=== PATIENT | female | born 1935 | race Caucasian/White ===

== ENCOUNTER → 2016-11-07 | Outpatient (REF) | payer MEDICARE ==
[~2016-11-07] MED LIST: /WARF25TA OR; /WARF5TA OR; ACET65TA OR; CALCCHW12 OR; LISI10TA4 PO; NAPRPOW4 PO; NORC1TAB4 PO; PERC5TAB8 OR; PERC7.5T8 OR; VITA20008 PO; VITAMIN D PO
== END ==
LOC: M LAB REF 16:08
DX: M62.89 Other specified disorders of muscle (principal); E53.8 Deficiency of other specified B group vitamins; E11.9 Type 2 diabetes mellitus without complications; E78.2 Mixed hyperlipidemia

== ENCOUNTER → 2016-11-07 | Outpatient (REF) | payer MEDICARE ==
[2016-11-07 13:01] LABS: ALBUMIN 3.9 GM/DL (3.2-5.2); ALBUMIN/GLOBULIN RATIO 1.39 (1.00-1.93); BILIRUBIN,TOTAL 0.6 MG/DL (0.2-1.0); CALCIUM LEVEL 8.9 MG/DL (8.8-10.2); CREATININE FOR GFR 1.14 MG/DL (0.55-1.02); GLOMERULAR FILTRATION RATE 48.9 (>39); POTASSIUM SERUM 4.5 MEQ/L (3.5-5.1); TOTAL PROTEIN 6.7 GM/DL (6.4-8.2)
== END ==
LOC: M SFHCPLAZ 08:01
PROVIDERS: ATTEND Family Medicine
DX: E78.2 Mixed hyperlipidemia (principal)

== ENCOUNTER → 2017-10-05 | Outpatient (REF) | payer MEDICARE ==
[2017-10-05 17:54] LABS: APPEARANCE, URINE HAZY (CLEAR); BACTERIA, URINE AUTO NEGATIVE (NEGATIVE); BILIRUBIN, URINE AUTO NEGATIVE (NEGATIVE); BLOOD, URINE BLOOD NEGATIVE (NEGATIVE); COLOR, URINE YELLOW (YELLOW); GLUCOSE, URINE (UA) AUTO NEGATIVE (NEGATIVE); KETONE, URINE AUTO TRACE mg/dL (NEGATIVE); LEUKOCYTE ESTERASE, URINE AUTO 2+ (NEGATIVE); MUCUS, URINE SMALL (NEGATIVE); NITRITE, URINE AUTO NEGATIVE (NEGATIVE); PROTEIN, URINE AUTO NEGATIVE (NEGATIVE); RBC, URINE AUTO 3 /HPF (0-3); SPECIFIC GRAVITY URINE AUTO 1.026 (1.002-1.035); SQUAMOUS EPITHELIAL CELL UR AU 1 /HPF (0-6); WBC, URINE AUTO 68 /HPF (0-3); YEAST LIKE CELL URINE AUTO SMALL
== END ==
LOC: M LAB REF 17:28
DX: N39.0 Urinary tract infection, site not specified (principal)
CPT/HCPCS: 81001

== ENCOUNTER → 2017-11-28 | Outpatient (REF) | payer MEDICARE ==
[2017-11-28 11:52] LABS: HEMATOCRIT 33.7 % (36.0-47.0); MEAN CORPUSCULAR HEMOGLOBIN 28.6 pg (27.0-33.0); MEAN CORPUSCULAR HGB CONC 32.6 g/dl (32.0-36.5); MEAN CORPUSCULAR VOLUME 87.8 fl (80.0-96.0); PLATELET COUNT, AUTOMATED 355 10^3/uL (150-450); RED BLOOD COUNT 3.84 10^6/uL (4.00-5.40); RED CELL DISTRIBUTION WIDTH 15.2 % (11.5-14.5)
[2017-11-28 12:05] LABS: ALBUMIN 3.7 GM/DL (3.2-5.2); ALBUMIN/GLOBULIN RATIO 1.23 (1.00-1.93); ALKALINE PHOSPHATASE 78 U/L (45-117); ALT/SGPT 20 U/L (12-78); ANION GAP 6 MEQ/L (8-16); AST/SGOT 17 U/L (7-37); BILIRUBIN,TOTAL 0.7 MG/DL (0.2-1.0); BLOOD UREA NITROGEN 22 MG/DL (7-18); CALCIUM LEVEL 8.6 MG/DL (8.8-10.2); CARBON DIOXIDE LEVEL 27 MEQ/L (21-32); CHLORIDE LEVEL 107 MEQ/L (98-107); GLOMERULAR FILTRATION RATE 50.9 (>32); GLUCOSE, FASTING 110 MG/DL (70-100); POTASSIUM SERUM 4.7 MEQ/L (3.5-5.1); SODIUM LEVEL 140 MEQ/L (136-145); TOTAL PROTEIN 6.7 GM/DL (6.4-8.2)
[2017-11-28 12:15] LABS: TOTAL 25(OH) VITAMIN D 24.1 NG/ML (30.0-100.0)
== END ==
LOC: M SFHCPLAZ 09:07
DX: D64.9 Anemia, unspecified (principal); E55.9 Vitamin D deficiency, unspecified; E78.2 Mixed hyperlipidemia
CPT/HCPCS: 80053

== ENCOUNTER → 2018-07-04 | Outpatient (CLI) | payer MEDICARE | LOC: M RAD 12:40 | DX: S22.42XA Multiple fractures of ribs, left side, initial encounter for closed fracture (principal); R91.8 Other nonspecific abnormal finding of lung field; R07.89 Other chest pain; M25.512 Pain in left shoulder; X58.XXXA Exposure to other specified factors, initial encounter; Y92.9 Unspecified place or not applicable | CPT/HCPCS: 71101 ==

== ENCOUNTER 2018-07-06 09:59 | Emergency (ER) | payer MEDICARE ==
[2018-07-06 11:20] LABS: BASO % 0.4 % (0.0-1.0); EOS # 0.5 10^3/uL (0.0-0.50); EOS % 5.1 % (0.0-3.0); IMMATURE GRANULOCYTE % 0.5 % (0-3.0); LYMPH # 0.9 10^3/uL (1.5-4.5); LYMPH % 9.7 % (24.0-44.0); MEAN CORPUSCULAR HEMOGLOBIN 25.9 pg (27.0-33.0); MEAN CORPUSCULAR HGB CONC 32.1 g/dl (32.0-36.5); MEAN CORPUSCULAR VOLUME 80.7 fl (80.0-96.0); MONO # 0.8 10^3/uL (0.0-0.8); MONO % 7.9 % (0.0-5.0); NEUTROPHILS # 7.3 10^3/uL (1.8-7.7); NEUTROPHILS % 76.4 % (36.0-66.0); PLATELET COUNT, AUTOMATED 323 10^3/uL (150-450); RED BLOOD COUNT 3.47 10^6/uL (4.00-5.40); RED CELL DISTRIBUTION WIDTH 17.3 % (11.5-14.5); WHITE BLOOD COUNT 9.6 10^3/uL (4.0-10.0)
[2018-07-06] MEDS: NS 1,000 ML IV (11:28)
[2018-07-06 11:31] LABS: PROTHROMBIN TIME 13.3 SECONDS (12.1-14.4)
[2018-07-06 11:47] LABS: LACTIC ACID SEPSIS PROTOCOL 1.3 MMOL/L (0.4-2.0)
[2018-07-06 11:50] LABS: INFLUENZA A AMPLIFICATION NEGATIVE (NEGATIVE); INFLUENZA B AMPLIFICATION NEGATIVE (NEGATIVE)
[2018-07-06 12:11] LABS: ALBUMIN 3.4 GM/DL (3.2-5.2); ALKALINE PHOSPHATASE 75 U/L (45-117); ALT/SGPT 17 U/L (12-78); ANION GAP 7 MEQ/L (8-16); AST/SGOT 16 U/L (7-37); BILIRUBIN,DIRECT 0.1 MG/DL (0.0-0.2); BILIRUBIN,TOTAL 0.6 MG/DL (0.2-1.0); BLOOD UREA NITROGEN 27 MG/DL (7-18); CALCIUM LEVEL 8.6 MG/DL (8.8-10.2); CARBON DIOXIDE LEVEL 26 MEQ/L (21-32); CHLORIDE LEVEL 105 MEQ/L (98-107); CPK CREATINE PHOSPHOKINASE 127 U/L (26-192); CREATININE FOR GFR 1.12 MG/DL (0.55-1.30); GLOMERULAR FILTRATION RATE 49.7 (>32); GLUCOSE, FASTING 106 MG/DL (70-100); MB/CK RELATIVE INDEX 2.44 (< OR =4); POTASSIUM SERUM 4.5 MEQ/L (3.5-5.1); SODIUM LEVEL 138 MEQ/L (136-145); THYROXINE (T4) 10.6 UG/DL (4.5-12.0); TOTAL PROTEIN 6.5 GM/DL (6.4-8.2); TROPONIN I < 0.02 NG/ML (< 0.10)
[2018-07-06] MEDS ORDERED: ISOVUE-370 76% 100ML VIAL (Q9967) As Ordered (12:16)
[2018-07-06 12:21] LABS: NT-PRO BNP 168 PG/ML (<450)
[2018-07-06] MEDS: LevoFLOXacin 750 MG TABLET PO (13:50)
[2018-07-06] MEDS: PANTOPRAZOLE 40MG TAB (PROTONIX) PO (14:27)
== END 2018-07-06 15:11 | disposition home or self-care (01) ==
LOC: M ED 09:59
DX: J18.9 Pneumonia, unspecified organism (principal)
CPT/HCPCS: Q9967

== ENCOUNTER → 2018-07-17 | Outpatient (CLI) | payer MEDICARE ==
[~2018-07-17] MED LIST changes: +DULO1CAP2; +LEVA750T7 PO; +PROT1TAB2 PO
--- NOTE | 2018-07-17 16:52 | REP ---
Clinical: Follow up infiltrate. Technique: Axial noncontrast images from the thoracic inlet to the upper abdomen with coronal and sagittal re-formations. Comparison: 07/06/2018. Findings: Mass / consolidation involving the perihilar left upper lobe measuring roughly 5.9 x 5.8 x 6.5 cm as well as posterior right lower lobe mass / consolidation with air bronchograms measuring approximately 5.7 x 3.7 x 6.5 cm with suspected mediastinal and possible hilar adenopathy remains unchanged. No significant pleural effusion. No pneumothorax. Atherosclerotic changes to the thoracic aorta and coronary arteries again noted without aortic aneurysm or cardiomegaly. No pericardial effusion. Limited upper abdomen demonstrates stable right adrenal adenoma as compared with 2011. Surrounding musculoskeletal structures demonstrate age-related degenerative change. Impression: Mass-like areas of consolidation involving the left upper lobe and posterior right lower lobe. Malignancy must be considered until proven otherwise. Differential diagnosis includes multifocal pneumonia reactive adenopathy. Further evaluation is required. Electronically Signed by Reji Huynh MD 07/17/2018 04:43 P
== END ==
LOC: M RAD 11:03
PROVIDERS: ATTEND Family Medicine
DX: R91.8 Other nonspecific abnormal finding of lung field (principal); I70.0 Atherosclerosis of aorta; D35.01 Benign neoplasm of right adrenal gland

== ENCOUNTER → 2018-07-30 | Outpatient (REF) | payer MEDICARE ==
[2018-07-30 14:13] LABS: INR 1.03; PROTHROMBIN TIME 13.6 SECONDS (12.1-14.4)
[2018-07-30 14:14] LABS: PARTIAL THROMBOPLASTIN TIME 28.9 SECONDS (25.4-37.6)
== END ==
LOC: M LAB REF 13:12
PROVIDERS: ATTEND Internal Medicine Pulmonary Disease
DX: Z01.812 Encounter for preprocedural laboratory examination (principal)

== ENCOUNTER → 2018-08-04 | Outpatient (REF) | payer MEDICARE ==
[2018-08-04 21:01] LABS: ALBUMIN 3.5 GM/DL (3.2-5.2); BILIRUBIN,TOTAL 0.4 MG/DL (0.2-1.0); CALCIUM LEVEL 8.7 MG/DL (8.8-10.2); CREATININE FOR GFR 1.05 MG/DL (0.55-1.30); FOLATE 15.5 NG/ML (>5.4); FREE T4 1.05 NG/DL (0.76-1.46); GLOMERULAR FILTRATION RATE 53.5 (>32); PERCENT SATURATION 8.7 % (13.2-45.0); POTASSIUM SERUM 4.7 MEQ/L (3.5-5.1); THYROID STIMULATING HORMONE 1.24 uIU/ML (0.358-3.740); TOTAL PROTEIN 6.4 GM/DL (6.4-8.2)
[2018-08-04 21:02] LABS: HEMATOCRIT 32.4 % (36.0-47.0); HEMOGLOBIN 9.6 g/dl (12.0-15.5); MEAN CORPUSCULAR HEMOGLOBIN 24.7 pg (27.0-33.0); MEAN CORPUSCULAR HGB CONC 29.6 g/dl (32.0-36.5); MEAN CORPUSCULAR VOLUME 83.5 fl (80.0-96.0); PLATELET COUNT, AUTOMATED 350 10^3/uL (150-450); RED BLOOD COUNT 3.88 10^6/uL (4.00-5.40); WHITE BLOOD COUNT 12.4 10^3/uL (4.0-10.0)
== END ==
LOC: M SFHCADAM 11:31
PROVIDERS: ATTEND Family Medicine
DX: D64.9 Anemia, unspecified (principal); R93.89 Abnormal findings on diagnostic imaging of other specified body structures; R53.83 Other fatigue; Z86.718 Personal history of other venous thrombosis and embolism
CPT/HCPCS: 80053; 82607; 82728; 82746; 83550; 84439; 84443; 85027; 85046; G0463

== ENCOUNTER 2019-05-17 03:01 | Inpatient (IN) | payer MEDICARE ==
[~2019-05-17] VITALS: Ht 162.6 cm; Wt 96.4 kg
[~2019-05-17 03:01] MED LIST changes: -/WARF25TA OR; -/WARF5TA OR; +COUM1TAB17 OR; +COUM1TAB18 OR; -DULO1CAP2; +DULO1CAP5; -NORC1TAB4 PO; +NORC1TAB7 PO
[2019-05-17] MEDS ORDERED: NS 1,000 ML IV ONE (03:30)
[2019-05-17] MEDS ORDERED: ACETAMINOPHEN TAB 650MG DOSE (2X325MG) PO ONE (03:30)
[2019-05-17 03:43] LABS: BASO % 0.3 % (0.0-1.0); EOS # 0.4 10^3/uL (0.0-0.5); EOS % 2.9 % (0.0-3.0); HEMATOCRIT 28.3 % (36.0-47.0); HEMOGLOBIN 8.5 g/dl (12.0-15.5); LYMPH # 0.7 10^3/uL (1.5-5.0); LYMPH % 4.4 % (24.0-44.0); MEAN CORPUSCULAR HEMOGLOBIN 22.2 pg (27.0-33.0); MEAN CORPUSCULAR VOLUME 73.9 fl (80.0-96.0); MONO # 1.2 10^3/uL (0.0-0.8); NEUTROPHILS # 12.9 10^3/uL (1.5-8.5); PLATELET COUNT, AUTOMATED 288 10^3/uL (150-450); RED BLOOD COUNT 3.83 10^6/uL (4.00-5.40); WHITE BLOOD COUNT 15.3 10^3/uL (4.0-10.0)
[2019-05-17] MEDS ORDERED: SYMB16INH INH (03:52)
[2019-05-17] MEDS ORDERED: SENN1TAB8 PO (03:52)
[2019-05-17] MEDS ORDERED: NEUR300C PO (03:52)
[2019-05-17] MEDS ORDERED: PANT40TA3 PO (03:52)
[2019-05-17] MEDS ORDERED: ALBU83IN INH (03:52)
[2019-05-17] MEDS ORDERED: REVL25CA PO (03:52)
[2019-05-17] MEDS ORDERED: ASPI81TA85 PO (03:52)
[2019-05-17 03:55] LABS: ALBUMIN 3.4 GM/DL (3.2-5.2); BILIRUBIN,DIRECT 0.2 MG/DL (0.0-0.2); BILIRUBIN,TOTAL 0.6 MG/DL (0.2-1.0); TOTAL PROTEIN 6.2 GM/DL (6.4-8.2)
[2019-05-17] MEDS ORDERED: PIPERACILLIN/TAZOBACTAM SOD 3.375 GM in D5W MINI-BAG PLUS 50 ML IV ONE (05:45)
[2019-05-17] MEDS ORDERED: IPRATROPIUM 0.5MG/ALBUTEROL 2.5MG INH SOL UD 3ML (DUONEB)(J7620) NEB PRN (08:00)
[2019-05-17] MEDS ORDERED: SENNA 8.6 MG TAB (SENOKOT) PO PRN (08:00)
--- NOTE | 2019-05-17 08:09 | HPEPDOC ---
[facility] Medical History & Physical Date of Admission May 17, 2019 Date of Service: May 17, 2019 Attending Physician: JUAN ANTONIO FAITH MD History and Physical CHIEF COMPLAINT: Weakness, foul-smelling urine HISTORY OF PRESENT ILLNESS: 84-year-old female with past medical history of non- Hodgkin's lymphoma (diffuse large B-cell lymphoma), status post R-CHOP, currently on Rituxan and Revlimid, peripheral neuropathy, GERD and anemia presents from home with weakness and foul-smelling urine. Patient has had episodes of recurrent UTI since starting chemotherapy, usually presents with similar symptoms. In the ED, she was also found to be febrile. As per daughter, patient also gets confused when she is infected, daughter reports episode of confusion starting last night. Patient is also found to be human rhinovirus positive on respiratory viral panel. Patient is currently fatigued and sleepy, reports generalized fatigue/malaise and aches. Denies any short of breath, chest pain, vomiting, abdominal pain or diarrhea. 10 point review of system was negative except for above PAST MEDICAL HISTORY: 1. Diffuse large B-cell lymphoma. 2.. Anemia. 3. GERD. PAST SURGICAL HISTORY: 1. Hysterectomy. 2., Hernia repair. SOCIAL HISTORY: Never smoker. Denies alcohol use. Denies drug use FAMILY HISTORY: Strong family history of malignancy (mother with colon cancer, brother with leukemia) ALLERGIES: Please see below. HOME MEDICATIONS: Please see below. PHYSICAL EXAMINATION: VITAL SIGNS: Please see below. GENERAL: No distress, frail HEENT: Normocephalic, atraumatic, moist mucous membranes NECK: Supple CARDIOVASCULAR EXAMINATION: S1, S2, no murmurs RESPIRATORY EXAMINATION: Limited anteriorly, Clear to auscultation, no wheezing ABDOMINAL EXAMINATION: Soft, mild tenderness to palpation, nondistended, positive bowel sounds EXTREMITIES: Bilateral lower extremity pitting edema SKIN: No rash NEUROLOGICAL EXAMINATION: no focal deficits PSYCHIATRIC EXAMINATION: Calm and cooperative LABORATORY DATA: See below. IMAGING: Chest x-ray, awaiting official read, on my observation, appears to have vascular congestion, left upper lobe mass. MICROBIOLOGY: Please see below. ASSESSMENT: 84-year-old female with past medical history of diffuse large B-cell lymphoma with recurrent infections (UTI/pneumonia) is being admitted for UTI and this respiratory viral infection (human rhinovirus).. . PLAN: 1. UTI. Patient symptomatic and UA concerning for infection. Broad-spectrum coverage empirically with vancomycin, Zosyn. Urine and blood cultures pending . IV fluids. 2. Human rhinovirus. Supportive care, saturating well on room air. 3. Diffuse large B-cell lymphoma. Diagnosed 6 months ago, status post R-CHOP, currently on Rituxan and Revlimid. 4. GERD. Continue Protonix. 5. Peripheral neuropathy. Continue gabapentin DVT prophylaxis: Heparin subcutaneous. GI prophylaxis: Home PPI Vital Signs Vital Signs Date Time Temp Pulse Resp B/P (MAP) Pulse Ox O2 Delivery O2 Flow Rate FiO2 05/17/19 06:45 91 20 143/63 (89) 97 Room Air 05/17/19 04:46 99.8 Laboratory Data Labs 24H Laboratory Tests 2 05/17/19 03:34: Immature Granulocyte % (Auto) 0.4, Neutrophils (%) (Auto) 84.0H, Lymphocytes (%) (Auto) 4.4L, Monocytes (%) (Auto) 8.0H, Eosinophils (%) (Auto) 2.9, Basophils (%) (Auto) 0.3, Neutrophils # (Auto) 12.9H, Lymphocytes # (Auto) 0.7L, Monocytes # (Auto) 1.2H, Eosinophils # (Auto) 0.4, Basophils # (Auto) 0.0, Nucleated Red Blood Cells % (auto) 0.0, Urine Color YELLOW, Urine Appearance CLOUDYH, Urine pH 5.0, Urine Specific [place] 1.013, Urine Protein NEGATIVE, Urine Glucose (UA) NEGATIVE, Urine Ketones NEGATIVE, Urine Blood 1+H, Urine Nitrite POSITIVEH, Urine Bilirubin NEGATIVE, Urine Urobilinogen 0.2, Urine Leukocyte Esterase 2+H, Urine WBC (Auto) TNTCH, Urine RBC (Auto) 4H, Urine Hyaline Casts (Auto) 0, Urine Bacteria (Auto) 1+H, Urine Squamous Epithelial Cells 0, Urine Mucus (Auto) SMALL, Urine Sperm (Auto) , Lactic Acid Level 2.8*H, Total Bilirubin 0.6, Direct Bilirubin 0.2, Aspartate Amino Transf (AST/SGOT) 16, Alanine Aminotransferase (A LT/SGPT) 27, Alkaline Phosphatase 100, Total Protein 6.2L, Albumin 3.4, Albumin/Globulin Ratio 1.21, Lipase 66L 05/17/19 03:47: POC Glucose (Misc Panel) 178H, POC Sodium (Misc Panel) 136, POC Potassium (Misc Panel) 4.1, POC Chloride (Misc Panel) 103, POC Total CO2 (Misc Panel) 21.0L, POC Blood Urea Nitrogen (Misc Panel 15, POC Ionized Calcium (Misc Panel) 4.4L, POC Creatinine (Misc Panel) 1.2, POC Hematocrit (Misc Panel) 25.0L CBC/BMP Laboratory Tests 05/17/19 03:34 Microbiology Microbiology 05/17/19 Respiratory Virus Panel (PCR) ([facility]ANK) - Final, Complete Human Rhinovirus/Enterovirus 05/17/19 Urine Culture, Received Pending 05/17/19 Blood Culture, Received Pending 05/17/19 Blood Culture, Received Pending Home Medications Scheduled Aspirin (Aspir 81) 81 Mg Tablet.dr, 81 MG PO DAILY Budesonide/Formoterol (Symbicort 160-4.5 Mcg Inhaler) 6 Gm Hfa.aer.ad, 2 PUFF INH BID Gabapentin (Neurontin) 300 Mg Capsule, 300 MG PO DAILY Lenalidomide (Revlimid) 25 Mg Capsule, 25 MG PO DAILY Administer at about the same time each day with water; administer with or without food. Swallow capsule whole; do not break, open, or chew. Pantoprazole Sodium (Pantoprazole Sodium) 40 Mg Tablet.dr, 40 MG PO Q2D Scheduled PRN Albuterol Sulf (Albuterol Sulfate) 2.5 Mg/3 Ml Vial.neb, 1 INH INH Q4H PRN for wheezing Sennosides (Senna) 8.6 Mg Tablet, 8.6 MG PO BID PRN for BOWEL CARE/CONSTIPATION Allergies Coded Allergies: No Known Drug Allergies (Verified Allergy, Unknown, 05/17/19) A-FIB/CHADSVASC A-FIB History Current/History of A-Fib/PAF?: No JUAN ANTONIO FAITH MD May 17, 2019 08:09
[2019-05-17] MEDS: SYMBICORT 160/4.5MCG INHALER 6GM INH SCH ×2 (08:34→21:00)
[2019-05-17] MEDS ORDERED: VANCOMYCIN HCL 1,000 MG, VIAL MATE ADAPTER 1 EACH in D5W 250 ML IV ONE ×2 (09:00→14:00)
--- NOTE | 2019-05-17 09:51 | REP ---
CHEST, PORTABLE: AP portable view of the chest is performed and compared to a prior study of 07/06/2018. There is cardiomegaly with vascular congestion. There are increased interstitial densities suggesting mild interstitial edema. There are small bilateral pleural effusions. Previously noted mass-like opacity in the left upper lobe has decreased, with persistent opacity at that location. There is mild bibasilar atelectasis/infiltrate. There is calcification of the thoracic aorta. IMPRESSION: Cardiomegaly with apparent vascular congestion and probable mild interstitial edema. Small effusions. Residual opacity in the left upper lobe at the site of the prior mass-like density. Mild bibasilar atelectasis/infiltrate. Electronically Signed by Evan Graves MD 05/18/2019 05:26 P
[2019-05-17] MEDS: PIPERACILLIN/TAZOBACTAM SOD 3.375 GM in D5W MINI-BAG PLUS 50 ML IV SCH ×3 (12:05→23:38)
[2019-05-17] MEDS: GABAPENTIN 300 MG CAP PO SCH (12:08)
[2019-05-17] MEDS: ASPIRIN 81 MG ENTERIC TAB PO SCH (12:08)
[2019-05-17] MEDS: HEPARIN SOD (PORCINE) 5000 UNITS/ML VIAL SC SCH ×2 (12:08→21:05)
--- NOTE | 2019-05-17 13:01 | PHACANCOPD ---
PHARMACY VANCOMYCIN DOSING Pt Demographics Demographics Patient Age:84 , Weight:96.360 , Gender: female Adjusted Body Weight Date: 05/17/19, Adjusted Body Weight: Kg Events Past 24 Hours Events Past 24 Hours: YES: Fever, Elevation in WBC; NO: Dialysis, Diuretic Therapy, Change in CrCl, Pending Diagnostics, Pending Procedures, Other Vancomycin Vancomycin Target Ranges: 15-20 mcg/ml Vancomycin Load Y/N: Yes Load Dose Date Time Vancomycin Load Dose: 2G Date: 05/17/19 Time: 1400 Vancomycin Dose Date: 05/17/19. Current Vancomycin Dose: Intermittent Dosing?: No Labs Labs Vital Signs Label Value Date Time Patient Temperature 99.8 degrees F 05/17/19 0446 Temperature Source Oral 05/17/19 0446 Patient Temperature 101.8 degrees F 05/17/19 0317 Temperature Source Oral 05/17/19 0317 Item Value Date Time White Blood Count 15.3 10^3/uL H 05/17/19 0334 Lactic Acid Level 2.8 MMOL/L *H 05/17/19 0334 POC Creatinine (Misc Panel) 1.2 MG/DL 05/17/19 0347 Micro Microbiology 05/17/19 Respiratory Virus Panel (PCR) ([facility]ANK) - Final, Complete Human Rhinovirus/Enterovirus 05/17/19 Urine Culture, Received Pending 05/17/19 Blood Culture, Received Pending 05/17/19 Blood Culture, Received Pending Creatinine Clearance Date:05/17/19. Creatinine Clearance: . Assessment and Plan Maintaining Current Dose?: Yes Reason for dose change: No Dose Change Pharmacist Note Pharmacist Note Date: 05/17/19. Pharmacist note: 84-year-old female with past medical history of non-Hodgkin's lymphoma (diffuse large B-cell lymphoma), status post R-CHOP, currently on Rituxan and Revlimid, peripheral neuropathy, GERD and anemia presents from home with weakness and foul-smelling urine. Patient has had episodes of recurrent UTI since starting chemotherapy, usually presents with similar symptoms. In the ED, she was also found to be febrile. As per daughter, patient also gets confused when she is infected, daughter reports episode of c onfusion starting last night. Patient is also found to be human rhinovirus positive on respiratory viral panel. Patient is currently fatigued and sleepy, reports generalized fatigue/malaise and aches. Denies any short of breath, chest pain, vomiting, abdominal pain or diarrhea. She has been started on Vanco/Zosyn. I have loaded the patient with Vanco 2gm, followed by Vanco 1250mg IV Q24H. Pt has no MRSA or Vanco hx with us. We will continue to monitor and adjust dose as needed. TWYLA VYAS PHARMACY May 17, 2019 13:01
[2019-05-17 14:00] VITALS: BP 90/72
[2019-05-17 22:00] VITALS: BP 122/84
[2019-05-18] MEDS: PIPERACILLIN/TAZOBACTAM SOD 3.375 GM in D5W MINI-BAG PLUS 50 ML IV SCH ×5 (05:30→23:52)
[2019-05-18 06:22] LABS: HEMATOCRIT 25.1 % (36.0-47.0); HEMOGLOBIN 7.8 g/dl (12.0-15.5); MEAN CORPUSCULAR HEMOGLOBIN 22.9 pg (27.0-33.0); MEAN CORPUSCULAR HGB CONC 31.1 g/dl (32.0-36.5); MEAN CORPUSCULAR VOLUME 73.6 fl (80.0-96.0); PLATELET COUNT, AUTOMATED 252 10^3/uL (150-450); RED BLOOD COUNT 3.41 10^6/uL (4.00-5.40); WHITE BLOOD COUNT 6.4 10^3/uL (4.0-10.0)
[2019-05-18 06:50] LABS: ALBUMIN 2.9 GM/DL (3.2-5.2); BILIRUBIN,TOTAL 0.7 MG/DL (0.2-1.0); CALCIUM LEVEL 7.9 MG/DL (8.8-10.2); CREATININE FOR GFR 1.12 MG/DL (0.55-1.30); GLOMERULAR FILTRATION RATE 49.6 (>32); MAGNESIUM LEVEL 1.8 MG/DL (1.8-2.4); POTASSIUM SERUM 3.7 MEQ/L (3.5-5.1); TOTAL PROTEIN 5.6 GM/DL (6.4-8.2)
[2019-05-18] MEDS: SYMBICORT 160/4.5MCG INHALER 6GM INH SCH ×2 (08:50→21:00)
[2019-05-18] MEDS ORDERED: REVLIMID 25 MG PO SCH (09:00)
[2019-05-18] MEDS: PANTOPRAZOLE 40MG TAB (PROTONIX) PO SCH (09:57)
[2019-05-18] MEDS: HEPARIN SOD (PORCINE) 5000 UNITS/ML VIAL SC SCH ×2 (09:57→21:31)
[2019-05-18] MEDS: ASPIRIN 81 MG ENTERIC TAB PO SCH (09:57)
[2019-05-18] MEDS: GABAPENTIN 300 MG CAP PO SCH (09:57)
[2019-05-18 14:00] VITALS: BP 131/59
[2019-05-18] MEDS ORDERED: VANCOMYCIN HCL 750 MG, VIAL MATE ADAPTER 1 EACH in D5W 250 ML IV SCH (14:00)
[2019-05-18] MEDS ORDERED: VANCOMYCIN HCL 500 MG in D5W MINI-BAG PLUS 100 ML IV SCH (15:00)
[2019-05-18] MEDS: REVLIMID 25 MG PO SCH (19:01)
--- NOTE | 2019-05-18 20:45 | IPNPDOC ---
Text Note Date of Service The patient was seen on 05/18/19. NOTE Subjective: No any acute events overnight. Patient alert, oriented. Patient denies fever, chills, nausea, vomiting, shortness of breath, palpitations diarrhea or dysuria Objective: GENERAL: No distress, frail HEENT: Normocephalic, atraumatic, moist mucous membranes NECK: Supple CARDIOVASCULAR EXAMINATION: S1, S2, no murmurs RESPIRATORY EXAMINATION: Limited anteriorly, clear to auscultation, no wheezing ABDOMINAL EXAMINATION: Soft, mild tenderness to palpation, nondistended, positive bowel sounds EXTREMITIES: Bilateral lower extremity pitting edema SKIN: No rash NEUROLOGICAL EXAMINATION: no focal deficits ASSESSMENT: 84-year-old female with past medical history of diffuse large B-cell lymphoma with recurrent infections (UTI/pneumonia) is being admitted for UTI and respiratory viral infection Sepsis Secondary to positive RSV complicated by bacterial component. Patient is severely immunocompromised, she receives currently rituximab and lenalidomide Resolved On the admission patient did have leukocytosis of 15.3, tachypnea of 20, lactic acid of 2.8, creatinine 1.12 Patient symptomatic and UA concerning for infection. Broad-spectrum coverage empirically with vancomycin, Zosyn Will check MRSA screen in order to days de-escalate antibiotics Urine cultures pending Blood culture negative for past 24 hours Incentive spirometry PT/OT 2. Human rhinovirus. Supportive care, saturating well on room air. 3. Diffuse large B-cell lymphoma. Diagnosed 6 months ago, status post R-CHOP, currently on Rituxan and Revlimid. 4. GERD. Continue Protonix. 5. Peripheral neuropathy. Continue gabapentin DVT prophylaxis: Heparin subcutaneous. VS,Fishbone, I+O VS, Fishbone, I+O Laboratory Tests 05/18/19 06:02 Vital Signs Date Time Temp Pulse Resp B/P (MAP) Pulse Ox O2 Delivery O2 Flow Rate FiO2 05/18/19 14:00 97.7 79 20 131/59 (83) 96 05/17/19 14:00 Room Air I&O- Last 24 Hours up to 6 AM 05/18/19 06:00 Intake Total 2540 ml Output Total 800 ml Balance 1740 ml REAL RAMIREZ DO May 18, 2019 20:45
[2019-05-18 22:00] VITALS: BP 132/60
[2019-05-19] VITALS (7 sets, daily range): BP systolic 134–147; BP diastolic 65–70
[2019-05-19 05:41] LABS: HEMATOCRIT 23.6 % (36.0-47.0); HEMOGLOBIN 7.1 g/dl (12.0-15.5); MEAN CORPUSCULAR HGB CONC 30.1 g/dl (32.0-36.5); MEAN CORPUSCULAR VOLUME 73.3 fl (80.0-96.0); PLATELET COUNT, AUTOMATED 237 10^3/uL (150-450); RED BLOOD COUNT 3.22 10^6/uL (4.00-5.40)
[2019-05-19] MEDS: PIPERACILLIN/TAZOBACTAM SOD 3.375 GM in D5W MINI-BAG PLUS 50 ML IV SCH ×2 (05:44→12:08)
[2019-05-19 06:06] LABS: CALCIUM LEVEL 8.3 MG/DL (8.8-10.2); CREATININE FOR GFR 1.19 MG/DL (0.55-1.30); GLOMERULAR FILTRATION RATE 46.2 (>32); MAGNESIUM LEVEL 1.9 MG/DL (1.8-2.4); POTASSIUM SERUM 3.7 MEQ/L (3.5-5.1)
[2019-05-19] MEDS: SYMBICORT 160/4.5MCG INHALER 6GM INH SCH ×2 (08:26→19:50)
[2019-05-19] MEDS: ASPIRIN 81 MG ENTERIC TAB PO SCH (08:44)
[2019-05-19] MEDS: GABAPENTIN 300 MG CAP PO SCH (08:44)
[2019-05-19] MEDS: HEPARIN SOD (PORCINE) 5000 UNITS/ML VIAL SC SCH ×2 (08:45→20:29)
[2019-05-19] MEDS ORDERED: NS 1,000 ML IV SCH (08:52)
[2019-05-19] MEDS: MIRALAX *UNIT DOSE* 17GM PACKET PO SCH (09:00)
--- NOTE | 2019-05-19 13:36 | IPNPDOC ---
Text Note Date of Service The patient was seen on 05/19/19. NOTE Subjective: No any acute events overnight. Patient alert, oriented. She comp lains of dysuria. Patient denies fever, chills, nausea, vomiting, diarrhea Objective: GENERAL: No distress, frail HEENT: Normocephalic, atraumatic, moist mucous membranes NECK: Supple CARDIOVASCULAR EXAMINATION: S1, S2, no murmurs RESPIRATORY EXAMINATION: Limited anteriorly, clear to auscultation, no wheezing ABDOMINAL EXAMINATION: Soft, mild tenderness to palpation, nondistended, positive bowel sounds EXTREMITIES: Bilateral lower extremity pitting edema SKIN: No rash NEUROLOGICAL EXAMINATION: no focal deficits ASSESSMENT: 84-year-old female with past medical history of diffuse large B-cell lymphoma with recurrent infections (UTI/pneumonia) is being admitted for UTI and respiratory viral infection Sepsis Secondary to positive RSV complicated by bacterial component. Patient is severely immunocompromised, she receives currently rituximab and lenalidomide Resolved On the admission patient did have leukocytosis of 15.3, tachypnea of 20, lactic acid of 2.8, creatinine 1.12 Patient symptomatic and UA concerning for infection. Broad-spectrum coverage empirically with vancomycin, Zosyn. MRSA screen negative, I discontinued vancomycin. Urine culture positive for Escherichia coli sensitive to Levaquin Blood culture negative for 48 hours Incentive spirometry PT/OT 2. Human rhinovirus. Supportive care, saturating well on room air. 3. Diffuse large B-cell lymphoma. Diagnosed 6 months ago, status post R-CHOP, currently on Rituxan and Revlimid. 4. GERD. Continue Protonix. 5. Peripheral neuropathy. Continue gabapentin DVT prophylaxis: Heparin subcutaneous. VS,Fishbone, I+O VS, Fishbone, I+O Laboratory Tests 05/19/19 05:28 Vital Signs Date Time Temp Pulse Resp B/P (MAP) Pulse Ox O2 Delivery O2 Flow Rate FiO2 05/19/19 06:00 97.8 78 18 138/67 (90) 98 Room Air I&O- Last 24 Hours up to 6 AM 05/19/19 06:00 Intake Total 1810 ml Output Total 1250 ml Balance 560 ml REAL RAMIREZ DO May 19, 2019 13:36
[2019-05-19] MEDS ORDERED: LevoFLOXacin 750 MG TABLET PO SCH ×2 (13:45→18:00)
[2019-05-19] MEDS: REVLIMID 25 MG PO SCH (18:07)
[2019-05-20 05:40] LABS: HEMOGLOBIN 8.4 g/dl (12.0-15.5); MEAN CORPUSCULAR HEMOGLOBIN 23.2 pg (27.0-33.0); MEAN CORPUSCULAR HGB CONC 31.1 g/dl (32.0-36.5); MEAN CORPUSCULAR VOLUME 74.6 fl (80.0-96.0); PLATELET COUNT, AUTOMATED 245 10^3/uL (150-450); RED BLOOD COUNT 3.62 10^6/uL (4.00-5.40); WHITE BLOOD COUNT 5.2 10^3/uL (4.0-10.0)
[2019-05-20 06:00] VITALS: BP 157/79
[2019-05-20 06:03] LABS: CALCIUM LEVEL 8.5 MG/DL (8.8-10.2); CREATININE FOR GFR 1.12 MG/DL (0.55-1.30); GLOMERULAR FILTRATION RATE 49.6 (>32); MAGNESIUM LEVEL 1.9 MG/DL (1.8-2.4); POTASSIUM SERUM 3.8 MEQ/L (3.5-5.1)
[2019-05-20] MEDS: GABAPENTIN 300 MG CAP PO SCH (08:11)
[2019-05-20] MEDS: PANTOPRAZOLE 40MG TAB (PROTONIX) PO SCH (08:11)
[2019-05-20] MEDS: ASPIRIN 81 MG ENTERIC TAB PO SCH (08:11)
[2019-05-20] MEDS: HEPARIN SOD (PORCINE) 5000 UNITS/ML VIAL SC SCH (08:12)
[2019-05-20] MEDS: MIRALAX *UNIT DOSE* 17GM PACKET PO SCH (08:12)
[2019-05-20] MEDS: SYMBICORT 160/4.5MCG INHALER 6GM INH SCH (08:22)
[2019-05-20] MEDS ORDERED: LEVA750T7 PO (10:53)
--- NOTE | 2019-05-20 20:17 | DS.PDOC ---
Discharge Summary General Date of Admission May 17, 2019 at 07:50 Date of Discharge 05/20/19 Attending Physician: REAL RAMIREZ DO Discharge Summary PROCEDURES PERFORMED DURING STAY: None ADMITTING DIAGNOSES: Sepsis Human rhinovirus Diffuse large B-cell lymphoma GERD. Peripheral neuropathy UTI. DISCHARGE DIAGNOSES: Sepsis Human rhinovirus Diffuse large B-cell lymphoma GERD. Peripheral neuropathy UTI. COMPLICATIONS/CHIEF COMPLAINT: Anemia. HISTORY OF PRESENT ILLNESS: 84-year-old female with past medical history of non- Hodgkin's lymphoma (diffuse large B-cell lymphoma), status post R-CHOP, currently on Rituxan and Revlimid, peripheral neuropathy, GERD and anemia presents from home with weakness and foul-smelling urine. Patient has had episodes of recurrent UTI since starting chemotherapy, usually presents with similar symptoms. In the ED, she was also found to be febrile. As per daughter, patient also gets confused when she is infected, daughter reports episode of c onfusion starting last night. Patient is also found to be human rhinovirus positive on respiratory viral panel. Patient is currently fatigued and sleepy, reports generalized fatigue/malaise and aches. Denies any short of breath, chest pain, vomiting, abdominal pain or diarrhea. HOSPITAL COURSE: During hospital stay following issue addressed Sepsis Secondary to positive RSV complicated by bacterial component. Patient is severely immunocompromised, she receives currently rituximab and lenalidomide Resolved On the admission patient did have leukocytosis of 15.3, tachypnea of 20, lactic acid of 2.8, creatinine 1.12 Patient symptomatic and UA concerning for infection Broad-spectrum coverage empirically with vancomycin, Zosyn. MRSA screen negative, I discontinued vancomycin. Urine culture positive for Escherichia coli sensitive to Levaquin Blood culture negative for 48 hours Incentive spirometry PT/OT 2. Human rhinovirus. Supportive care, saturating well on room air. 3. Diffuse large B-cell lymphoma. Diagnosed 6 months ago, status post R-CHOP, currently on Rituxan and Revlimid. 4. GERD. Continue Protonix. 5. Peripheral neuropathy. UTI Urine analysis positive for Escherichia coli. Continue Levaquin in the outpatient settings Anemia Most likely secondary to chemotherapy Patient received blood transfusion 1 unit. Patient will need anemia workup in the outpatient settings including iron panel, B12, folate DISCHARGE MEDICATIONS: Please see below. ALLERGIES: Please see below. PHYSICAL EXAMINATION ON DISCHARGE: VITAL SIGNS: Please see below. GENERAL: No distress, frail HEENT: Normocephalic, atraumatic, moist mucous membranes NECK: Supple CARDIOVASCULAR EXAMINATION: S1, S2, no murmurs RESPIRATORY EXAMINATION: Limited anteriorly, Clear to auscultation, no wheezing ABDOMINAL EXAMINATION: Soft, mild tenderness to palpation, nondistended, positive bowel sounds EXTREMITIES: Bilateral lower extremity pitting edema SKIN: No rash NEUROLOGICAL EXAMINATION: no focal deficits PSYCHIATRIC EXAMINATION: Calm and cooperative LABORATORY DATA: Please see below. IMAGING: CHEST, PORTABLE: AP portable view of the chest is performed and compared to a prior study of 07/06/2018. There is cardiomegaly with vascular congestion. There are increased interstitial densities suggesting mild interstitial edema. There are small bilateral pleural effusions. Previously noted mass-like opacity in the left upper lobe has decreased, with persistent opacity at that location. There is mild bibasilar atelectasis/infiltrate. There is calcification of the thoracic aorta. IMPRESSION: Cardiomegaly with apparent vascular congestion and probable mild interstitial edema. Small effusions. Residual opacity in the left upper lobe at the site of the prior mass-like density. Mild bibasilar atelectasis/infiltrate. PROGNOSIS: Favorable ACTIVITY: As tolerated DIET: Cardiac DISCHARGE PLAN: Home DISPOSITION: 01 Home, Self-Care. DISCHARGE INSTRUCTIONS: Follow-up with primary care and oncologist DISCHARGE CONDITION: Stable TIME SPENT ON DISCHARGE: Greater than 20 minutes. Vital Signs/I&Os Vital Signs Date Time Temp Pulse Resp B/P (MAP) Pulse Ox O2 Delivery O2 Flow Rate FiO2 05/20/19 06:00 98.0 80 20 157/79 (105) 96 05/19/19 17:00 Room Air I&O- Last 24 Hours up to 6 AM 05/20/19 06:00 Intake Total 1610 ml Output Total 1600 ml Balance 10 ml Laboratory Data Labs 24H Laboratory Tests 2 05/20/19 05:27: Nucleated Red Blood Cells % (auto) 0.0, Anion Gap 8, Glomerular Filtration Rate 49.6, Calcium Level 8.5L, Magnesium Level 1.9 CBC/BMP Laboratory Tests 05/20/19 05:27 Microbiology Microbiology 05/17/19 Respiratory Virus Panel (PCR) ([facility]) - Final, Complete Human Rhinovirus/Enterovirus 05/17/19 Urine Culture - Final, Complete Escherichia Coli 05/17/19 Blood Culture - Preliminary, Resulted No Growth after 72 hours. All specime... 05/17/19 Blood Culture - Preliminary, Resulted No Growth after 72 hours. All specime... Discharge Medications Scheduled Aspirin (Aspir 81) 81 Mg Tablet.dr, 81 MG PO DAILY, (Reported) Budesonide/Formoterol (Symbicort 160-4.5 Mcg Inhaler) 6 Gm Hfa.aer.ad, 2 PUFF INH BID, (Reported) Gabapentin (Neurontin) 300 Mg Capsule, 300 MG PO DAILY, (Reported) Lenalidomide (Revlimid) 25 Mg Capsule, 25 MG PO DAILY, (Reported) Administer at about the same time each day with water; administer with or without food. Swallow capsule whole; do not break, open, or chew. Levofloxacin (Levaquin) 750 Mg Tablet, 750 MG PO Q48H Pantoprazole Sodium (Pantoprazole Sodium) 40 Mg Tablet.dr, 40 MG PO Q2D, (Reported) Scheduled PRN Albuterol Sulf (Albuterol Sulfate) 2.5 Mg/3 Ml Vial.neb, 1 INH INH Q4H PRN for wheezing, (Reported) Sennosides (Senna) 8.6 Mg Tablet, 8.6 MG PO BID PRN for BOWEL CARE/CONSTIPATION, (Reported) Allergies Coded Allergies: No Known Drug Allergies (Verified Allergy, Unknown, 05/17/19) REAL RAMIREZ DO May 20, 2019 20:17
== END 2019-05-20 12:03 | disposition home or self-care (01) | DRG 872 ==
LOC: M ED 03:01 → M ED INP 07:50 → M MSPAV 13:53
PROVIDERS: ADMIT Internal Medicine; ATTEND Internal Medicine
PROC: 30233N1 Transfusion of Nonautologous Red Blood Cells into Peripheral Vein, Percutaneous Approach (ICD-10-PCS; principal; 2019-05-19)
DX: A41.9 Sepsis, unspecified organism (principal); N39.0 Urinary tract infection, site not specified; C85.80 Other specified types of non-Hodgkin lymphoma, unspecified site; K21.9 Gastro-esophageal reflux disease without esophagitis; G62.9 Polyneuropathy, unspecified; B97.89 Other viral agents as the cause of diseases classified elsewhere; B96.29 Other Escherichia coli [E. coli] as the cause of diseases classified elsewhere; Z79.82 Long term (current) use of aspirin; Z79.899 Other long term (current) drug therapy; D50.9 Iron deficiency anemia, unspecified

== ENCOUNTER → 2019-06-26 | Outpatient (REF) | payer MEDICARE ==
[~2019-06-26] MED LIST changes: +ALBU83IN INH; +ASPI81TA85 PO; +NEUR300C PO; +PANT40TA3 PO; +REVL25CA PO; +SENN1TAB8 PO; +SYMB16INH INH
[2019-06-26 21:45] LABS: APPEARANCE, URINE HAZY (CLEAR); BACTERIA, URINE AUTO 1+ (NEGATIVE); BILIRUBIN, URINE AUTO NEGATIVE (NEGATIVE); BLOOD, URINE BLOOD 1+ (NEGATIVE); COLOR, URINE YELLOW (YELLOW); GLUCOSE, URINE (UA) AUTO NEGATIVE (NEGATIVE); KETONE, URINE AUTO NEGATIVE (NEGATIVE); LEUKOCYTE ESTERASE, URINE AUTO TRACE (NEGATIVE); MUCUS, URINE SMALL (NEGATIVE); NITRITE, URINE AUTO POSITIVE (NEGATIVE); PROTEIN, URINE AUTO NEGATIVE (NEGATIVE); RBC, URINE AUTO 1 /HPF (0-3); SPECIFIC GRAVITY URINE AUTO 1.012 (1.002-1.035); SQUAMOUS EPITHELIAL CELL UR AU 1 /HPF (0-6); UROBILINOGEN, URINE AUTO 0.2 mg/dL (0.0-2.0); WBC, URINE AUTO 8 /HPF (0-3)
== END ==
LOC: M LAB REF 08:56
PROVIDERS: ATTEND Physician Assistant
DX: N39.0 Urinary tract infection, site not specified (principal)

== ENCOUNTER → 2019-07-25 | Outpatient (REF) | payer MEDICARE | LOC: M LAB REF 13:43 | PROVIDERS: ATTEND Physician Assistant Medical | DX: R30.0 Dysuria (principal) ==

== ENCOUNTER → 2019-08-20 | Outpatient (REF) | payer MEDICARE ==
[2019-08-20 13:09] LABS: APPEARANCE, URINE HAZY (CLEAR); BACTERIA, URINE AUTO NEGATIVE (NEGATIVE); BILIRUBIN, URINE AUTO NEGATIVE (NEGATIVE); BLOOD, URINE BLOOD NEGATIVE (NEGATIVE); COLOR, URINE YELLOW (YELLOW); GLUCOSE, URINE (UA) AUTO NEGATIVE (NEGATIVE); KETONE, URINE AUTO NEGATIVE (NEGATIVE); LEUKOCYTE ESTERASE, URINE AUTO TRACE (NEGATIVE); MUCUS, URINE SMALL (NEGATIVE); NITRITE, URINE AUTO NEGATIVE (NEGATIVE); PROTEIN, URINE AUTO NEGATIVE (NEGATIVE); RBC, URINE AUTO 2 /HPF (0-3); SQUAMOUS EPITHELIAL CELL UR AU 1 /HPF (0-6); UROBILINOGEN, URINE AUTO 0.2 mg/dL (0.0-2.0); WBC, URINE AUTO 28 /HPF (0-3)
== END ==
LOC: M LAB REF 12:40
PROVIDERS: ATTEND Physician Assistant
DX: N39.0 Urinary tract infection, site not specified (principal)

== ENCOUNTER → 2019-09-30 | Outpatient (REF) | payer MEDICARE | LOC: M LAB REF 16:31 | PROVIDERS: ATTEND Internal Medicine | DX: G60.9 Hereditary and idiopathic neuropathy, unspecified (principal) ==

== ENCOUNTER → 2019-12-09 | Outpatient (REF) | payer MEDICARE ==
[~2019-12-09] MED LIST changes: +DOCU100C16 PO; +LEVO500T3 PO; +SENN-80 PO; -SENN1TAB8 PO
== END ==
LOC: M LAB REF 12:09
PROVIDERS: ATTEND Physician Assistant
DX: R30.0 Dysuria (principal)

== ENCOUNTER 2019-12-10 18:46 | Inpatient (IN) | payer MEDICARE ==
[~2019-12-10] VITALS: Ht 162.6 cm; Wt 90.4 kg
[~2019-12-10 18:46] MED LIST changes: -DOCU100C16 PO; -LEVO500T3 PO
[2019-12-10] MEDS ORDERED: ACETAMINOPHEN TAB 650MG DOSE (2X325MG) PO PRN (21:00)
[2019-12-10 21:36] LABS: HEMOGLOBIN 8.4 g/dl (12.0-15.5); MEAN CORPUSCULAR HEMOGLOBIN 31.3 pg (27.0-33.0); MEAN CORPUSCULAR HGB CONC 33.6 g/dl (32.0-36.5); MEAN CORPUSCULAR VOLUME 93.3 fl (80.0-96.0); RED BLOOD COUNT 2.68 10^6/uL (4.00-5.40); WHITE BLOOD COUNT 1.3 10^3/uL (4.0-10.0)
[2019-12-10 21:57] LABS: INR 1.15; PROTHROMBIN TIME 14.4 SECONDS (11.8-14.0)
[2019-12-10 22:02] LABS: PLATELET COUNT, AUTOMATED 18 10^3/uL (150-450)
[2019-12-10 22:04] LABS: ALBUMIN 3.5 GM/DL (3.2-5.2); BILIRUBIN,TOTAL 1.5 MG/DL (0.2-1.0); CREATININE FOR GFR 1.13 MG/DL (0.55-1.30); GLOMERULAR FILTRATION RATE 49.1 (>32); POTASSIUM SERUM 3.7 MEQ/L (3.5-5.1)
[2019-12-10] MEDS ORDERED: LEVO500T3 PO (23:59)
[2019-12-10] MEDS ORDERED: DOCU100C16 PO (23:59)
[2019-12-11] MEDS ORDERED: ALBUTEROL SULFATE 2.5 MG/0.5 ML INH NEB SOLN INH PRN (00:30)
[2019-12-11] MEDS: CEPHALEXIN 250MG CAPSULE PO SCH ×2 (00:30→05:33)
[2019-12-11] MEDS ORDERED: DOCUSATE SODIUM 100 MG CAP PO PRN (00:30)
[2019-12-11] MEDS ORDERED: SENNA 8.6 MG TAB (SENOKOT) PO PRN (00:30)
--- NOTE | 2019-12-11 01:56 | HPEPDOC ---
[facility] Medical History & Physical Date of Admission December 10, 2019 Date of Service: December 10, 2019 Attending Physician: MERRICK BLOOD MD History and Physical CHIEF COMPLAINT: Weakness HISTORY OF PRESENT ILLNESS: 84-year-old W with DLBCL s/p R-CHOP, currently on lenalidomide and follows with oncologist Dr. Spears ([place]), peripheral neuropathy, GERD and anemia who presented as a transfer from [place] where she presented 1day being diagnosed with a UTI in the outpatient setting and having started levaquin, reporting generalized weakness. While at [place], she was to be pancytopenic and thus transfer was initiated to [facility] for likely transfusions? and possible oncology consult. Of note, she reports that tomorrow 516 is the last day of her lenalidomide and will usually be off of it for 10d thereafter as part of her regimen. She otherwise denied any shortness of breath, chest pain, vomiting, abdominal pain or diarrhea. ROS: 10 point review of system was negative except for above PAST MEDICAL HISTORY: 1. Diffuse large B-cell lymphoma. 2. Anemia. 3. GERD. PAST SURGICAL HISTORY: 1. Hysterectomy. 2., Hernia repair. SOCIAL HISTORY: Never smoker. Denies alcohol use. Denies drug use FAMILY HISTORY: Mother had colon cancer, brother had leukemia ALLERGIES: Please see below. HOME MEDICATIONS: Please see below. PHYSICAL EXAMINATION: VITAL SIGNS: Please see below. GENERAL: No distress, obese HEENT: Normocephalic, atraumatic, moist mucous membranes, PERRLA, EOMI NECK: Supple, no JVD CARDIOVASCULAR EXAMINATION: RRR, split S2, otherwise no murmurs, rubs or gallops RESPIRATORY EXAMINATION: Clear to auscultation bilaterally without wheezing, rales or rhonchi ABDOMINAL EXAMINATION: Normoactive sounds, obese, soft, NTND EXTREMITIES: Bilateral lower extremity pitting edema that she describes to be her baseline SKIN: No rashes or lesions NEUROLOGICAL EXAMINATION: CN2-2 intact, no focal deficits PSYCHIATRIC EXAMINATION: Calm and cooperative, AOx3 LABORATORY DATA: See below. MICROBIOLOGY: Please see below. ASSESSMENT: 84-year-old W with DLBCL on Revlimid with a history of recurrent infections (UTIs and pneumonia), who [facility] and now presented to [place] with weakness and found to have chemo-induced pancytopenia and UTI. PLAN: 1. UTI. Diagnosed 2d ago after presentation with dysuria and foul smelling urine to urgent care and UA was positive and she was started on levaquin. Dc fluroquinolone in elderly patient and will place her on empiric keflex and redraw urine culture -To [facility] for BCx and UCx results 2. Diffuse large B-cell lymphoma. Diagnosed in 2019, s/p R-CHOP, currently Revlimid. She reports being only on Revlimid at this time. gave 12/09 PM dose. 12/10 is her last dose and then she will be off for 10d. -Day team to reach out to Dr. Meade at [place] about pancytopenia with patient reporting that she has actually been dose reduced but not sure about the details. 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 3. Pancytopenia: most likely 2/2 lenalidomide -daily CBC with transfusion thresholds as below -platelets to goal >10, to goal >20 if febrile and to goal >50 if bleeding -Hgb goal >8 4. LE edema: She had a remote TTE that showed grade likely 1 diastolic dysfunction with an otherwise normal EF in 2016. She now reports persistent LE edema without orthopnea, PND, chest pain, palpitations. Her nutritional status is sufficient with an albumin >3 and a normal Cr. -Will order TTE for the morning 5. GERD. Continue Protonix. 6. continue symbicort and PRN albuterol - not clear if she has Asthma or COPD, very remote brief smoking history in her teenage years. DVT prophylaxis: low platelets, TEDs Diet: regular Dispo: medsurg Vital Signs Vital Signs Date Time Temp Pulse Resp B/P (MAP) Pulse Ox O2 Delivery O2 Flow Rate FiO2 12/10/19 20:15 98.0 94 18 96 Room Air Laboratory Data Labs 24H Laboratory Tests 2 12/10/19 21:26: Nucleated Red Blood Cells % (auto) 0.0, Immature Platelet Fraction 4.3, Prothrombin Time 14.4H, Prothromb Time International Ratio 1.15, Anion Gap 9, Glomerular Filtration Rate 49.1, Lactic Acid Level 1.3, Calcium Level 8.0L, Total Bilirubin 1.5H, Aspartate Amino Transf (AST/SGOT) 20, Alanine Aminotransferase (ALT/SGPT) 32, Alkaline Phosphatase 73, Total Protein 6.0L, Albumin 3.5, Albumin/Globulin Ratio 1.4 12/10/19 21:40: Urine Color YELLOW, Urine Appearance CLEAR, Urine pH 5.0, Urine Specific [place] 1.013, Urine Protein NEGATIVE, Urine Glucose (UA) NEGATIVE, Urine Ketones NEGATIVE, Urine Blood NEGATIVE, Urine Nitrite NEGATIVE, Urine Bilirubin NEGATIVE, Urine Urobilinogen 0.2, Urine Leukocyte Esterase NEGATIVE, Urine WBC (Auto) 7H, Urine RBC (Auto) 2, Urine Hyaline Casts (Auto) 0, Urine Bacteria (Auto) NEGATIVE, Urine Squamous Epithelial Cells 1, Urine Mucus (Auto) SMALL, Urine Sperm (Auto) CBC/BMP Laboratory Tests 12/10/19 21:26 Microbiology Microbiology 12/10/19 Blood Culture, Received Pending 12/10/19 Blood Culture, Received Pending Home Medications Scheduled Aspirin (Aspir 81) 81 Mg Tablet.dr, 81 MG PO DAILY Budesonide/Formoterol (Symbicort 160-4.5 Mcg Inhaler) 6 Gm Hfa.aer.ad, 2 PUFF INH BID Lenalidomide (Revlimid) 25 Mg Capsule, 25 MG PO QPM Administer at about the same time each day with water; administer with or without food. Swallow capsule whole; do not break, open, or chew. TAKES CAP AT 1700 Levofloxacin (Levofloxacin) 500 Mg Tablet, 500 MG PO DAILY ENDS ON 12/15/19 Pantoprazole Sodium (Pantoprazole Sodium) 40 Mg Tablet.dr, 40 MG PO Q2D Scheduled PRN Albuterol Sulf (Albuterol Sulfate) 2.5 Mg/3 Ml Vial.neb, 1 VIAL INH Q4H PRN for wheezing Docusate Sodium (Docusate Sodium) 100 Mg Capsule, 100 MG PO DAILY PRN for CONSTIPATION Sennosides (Senna) 8.6 Mg Tablet, 8.6 MG PO BID PRN for BOWEL CARE/CONSTIPATION Allergies Coded Allergies: No Known Drug Allergies (Verified Allergy, Unknown, 05/17/19) A-FIB/CHADSVASC A-FIB History Current/History of A-Fib/PAF?: No Current PO Anticoag Therapy: No Age/Risk Factor Scoring CHADSVASC: CHADSVASC Response (Comments) Value Age Risk Factor Age >/= 75 years old 2 Gender Risk Factor Female 1 Hx of CHF No 0 Hx of HTN No 0 Hx of Stroke/TIA/or VTE No 0 Hx of Diabetes No 0 Hx of Vascular Disease No 0 Total 3 Treatment Treatment ordered: NONE Reason Anticoagulant not given: Not indicated/[id number] MERRICK BLOOD MD December 11, 2019 01:56
[2019-12-11 04:00] VITALS: BP 158/90
[2019-12-11 05:08] LABS: HEMATOCRIT 23.4 % (36.0-47.0); HEMOGLOBIN 8.1 g/dl (12.0-15.5); MEAN CORPUSCULAR HEMOGLOBIN 32.5 pg (27.0-33.0); MEAN CORPUSCULAR HGB CONC 34.6 g/dl (32.0-36.5); RED BLOOD COUNT 2.49 10^6/uL (4.00-5.40); WHITE BLOOD COUNT 1.1 10^3/uL (4.0-10.0)
[2019-12-11 05:14] LABS: PLATELET COUNT, AUTOMATED 20 10^3/uL (150-450)
[2019-12-11 05:28] LABS: CALCIUM LEVEL 7.9 MG/DL (8.8-10.2); CREATININE FOR GFR 1.16 MG/DL (0.55-1.30); GLOMERULAR FILTRATION RATE 47.6 (>32); MAGNESIUM LEVEL 1.9 MG/DL (1.8-2.4); POTASSIUM SERUM 3.9 MEQ/L (3.5-5.1)
[2019-12-11] MEDS: SYMBICORT 160/4.5MCG INHALER 6GM INH SCH ×2 (07:12→20:00)
[2019-12-11 07:54] VITALS: BP 120/78
[2019-12-11 08:10] LABS: ATYPICAL LYMPH 3 % (0-5); BASOPHILS 3 % (0-1); EOSINOPHILS 34 % (0-3); LYMPHOCYTES 29 % (16-44); MONOCYTES 5 % (0-5); NEUTROPHILS 26 % (28-66); PLATELET ESTIMATE MARKED DECREASE (NORMAL)
[2019-12-11 08:11] LABS: ANISOCYTOSIS 1+
[2019-12-11] MEDS: ASPIRIN 81 MG ENTERIC TAB PO SCH (10:11)
[2019-12-11] MEDS: CEFEPIME HCL 2 GM in D5W MINI-BAG PLUS 50 ML IV SCH ×2 (10:11→19:59)
[2019-12-11 12:00] VITALS: BP 166/74
[2019-12-11] MEDS ORDERED: LevoFLOXacin IV 750 MG in IV 1 EA IV SCH (12:00)
--- NOTE | 2019-12-11 14:55 | IPNPDOC ---
Text Note Date of Service The patient was seen on 12/11/19. NOTE SUBJECTIVE: Carlie Rolle was seen today sitting up comfortably in a chair. She states she was transferred to our facility in order to get a platelet transfusion and is wondering if this will be done today. She denies fevers/chills. She states her dysuria has resolved in the last couple days. She has not had any chest pain, shortness of breath, cough, sputum production. OBJECTIVE: VITAL SIGNS: See below GENERAL: Alert, comfortable, in no acute distress HEENT: Normocephalic, atraumatic, sclerae anicteric, moist mucous membranes NECK: Supple CARDIOVASCULAR: Regular rate and rhythm, normal S1 and S2. No murmurs, rubs, or gallops RESPIRATORY: Clear to auscultation bilaterally with equal air entry bilaterally. No wheezing, rhonchi, or rales. ABDOMEN: Soft, nontender, nondistended, bowel sounds present EXTREMITIES: Bilateral pitting edema to the upper calf with calf tenderness bilaterally SKIN: No rash NEUROLOGIC: Alert and oriented 3 to person, place and time. No focal deficits appreciated PSYCHIATRIC: Mood and affect appropriate ASSESSMENT: PLAN: # Pneumonia suspected based on CXR - Chest CT obtained at [facility], will obtain radiologist report, reviewed films which is concerning for possible bilateral pneumonia - ANC = 286 today, severe neutropenia, will cover for neutropenic fever although she does not report a fever. - Abx coverage with IV Cefepime and IV Levaquin day #1. # UTI Initially started on oral levaquin, continue with IV levaquin as noted above. -Obtain further results from [facility] regarding urine cultures and blood cultures. # Diffuse large B-cell lymphoma, managed by Dr. Meade in [facility] s/p R-CHOP, currently on Revlimid, last dose 12/09 PM. 12/10 would be her last dose and then she will be off for 10d. - case discussed with Dr. Olson of [facility] oncology who suggests holding the last dose of lenalidomide due to pancytopenia # Pancytopenia, likely 2/2 lenalidomide -discussed case with oncologist Dr. Olson, hold home lenalidomide. -daily CBC to monitor -transfuse platelets as needed to goal >10 or goal >30 if bleeding -transfuse RBCs as needed to Hgb goal >8 -IgG levels ordered and pending, if low consider IVIG in the setting of acute infection # bilateral LE edema - prior echo that showed grade likely 1 diastolic dysfunction with an otherwise normal EF in 2016, consider repeat TTE - with calf tenderness, bilat LE U/S to rule out DVT pending # GERD. continue home Protonix. # ?COPD - continue home symbicort and PRN albuterol DVT prophylaxis: TEDs/SCDs Disposition: pending clinical improvement Attending attestation: I evaluated and examined the patient in person; I discussed the care with Resident in detail and agree with the plan above. VS,Fishbone, I+O VS, Fishbone, I+O Laboratory Tests 12/10/19 21:26 12/11/19 04:43 Vital Signs Date Time Temp Pulse Resp B/P (MAP) Pulse Ox O2 Delivery O2 Flow Rate FiO2 12/11/19 07:54 97.9 67 18 120/78 (92) 98 Room Air I&O- Last 24 Hours up to 6 AM 12/11/19 06:00 Intake Total 240 ml Output Total 250 ml Balance -10 ml MAYRA ALBRECHT D.O. December 11, 2019 14:55 JUAN ANTONIO FAITH MD December 12, 2019 19:57
[2019-12-11 16:00] VITALS: BP 140/63
[2019-12-11] MEDS: FILGRASTIM 300 MCG/0.5 ML SYRINGE (J1442 PER 1MCG) SC SCH (19:56)
[2019-12-11 20:00] VITALS: BP 158/74
[2019-12-11] MEDS ORDERED: LENALIDOMIDE 25 MG PO SCH (21:00)
[2019-12-12 04:00] VITALS: BP 121/56
[2019-12-12 04:45] LABS: HEMATOCRIT 22.3 % (36.0-47.0); HEMOGLOBIN 7.6 g/dl (12.0-15.5); MEAN CORPUSCULAR HEMOGLOBIN 31.8 pg (27.0-33.0); MEAN CORPUSCULAR HGB CONC 34.1 g/dl (32.0-36.5); MEAN CORPUSCULAR VOLUME 93.3 fl (80.0-96.0); RED BLOOD COUNT 2.39 10^6/uL (4.00-5.40); WHITE BLOOD COUNT 2.2 10^3/uL (4.0-10.0)
[2019-12-12 04:53] LABS: PLATELET COUNT, AUTOMATED 15 10^3/uL (150-450)
[2019-12-12 05:05] LABS: CALCIUM LEVEL 7.8 MG/DL (8.8-10.2); CREATININE FOR GFR 1.29 MG/DL (0.55-1.30); GLOMERULAR FILTRATION RATE 42.1 (>32); POTASSIUM SERUM 3.8 MEQ/L (3.5-5.1)
[2019-12-12 05:11] LABS: ANISOCYTOSIS 1+; EOSINOPHILS 15 % (0-3); LYMPHOCYTES 13 % (16-44); NEUTROPHILS 66 % (28-66); PLATELET ESTIMATE MARKED DECREASE (NORMAL)
[2019-12-12] MEDS: SYMBICORT 160/4.5MCG INHALER 6GM INH SCH (07:31)
[2019-12-12 07:39] VITALS: BP 160/73
[2019-12-12] MEDS ORDERED: PANTOPRAZOLE 40MG TAB (PROTONIX) PO SCH (09:00)
[2019-12-12] MEDS: ASPIRIN 81 MG ENTERIC TAB PO SCH (09:20)
[2019-12-12] MEDS: CEFEPIME HCL 2 GM in D5W MINI-BAG PLUS 50 ML IV SCH (09:20)
[2019-12-12] MEDS: FILGRASTIM 300 MCG/0.5 ML SYRINGE (J1442 PER 1MCG) SC SCH (10:09)
--- NOTE | 2019-12-12 10:10 | DS.PDOC ---
Discharge Summary General Date of Admission December 10, 2019 at 20:15 Date of Discharge 12/12/19 Attending Physician: JUAN ANTONIO FAITH MD Discharge Summary PROCEDURES PERFORMED DURING STAY: None. ADMITTING DIAGNOSES: 1. Pancytopenia, UTI. DISCHARGE DIAGNOSES: 1. Pancytopenia, UTI. COMPLICATIONS/CHIEF COMPLAINT: Thrombocytopenia Neutropenia. HISTORY OF PRESENT ILLNESS: 84-year-old female with past medical history of metastatic lung cancer was admitted for pancytopenia and UTI. Patient was being treated for the UTI and an outpatient setting. Throughout her hospitalization. She has clinically remained stable, without any complaints. She denies any symptoms concerning for a respiratory or urinary tract infection, vitals and labs have been suggesting inappropriately treated infection. She does have pancytopenia secondary to Revlimid, [facility], 2 doses of been given, white blood cell count is improving. Patient continues to have pancytopenia, as expected, no intervention needed at this time, outpatient follow with oncologist. Patient's cultures and infectious workup has been negative, will be discharged on Levaquin to complete her antibiotic course. Patient is hemodynamically and clinically stable for discharge at this time. HOSPITAL COURSE: As above. DISCHARGE MEDICATIONS: Please see below. ALLERGIES: Please see below. PHYSICAL EXAMINATION: VITAL SIGNS: Please see below. GENERAL: No distress HEENT: Normocephalic, atraumatic, moist mucous membranes NECK: Supple CARDIOVASCULAR EXAMINATION: S1, S2, no murmurs RESPIRATORY EXAMINATION: Scattered rhonchi, diminished on left side, no wheezing ABDOMINAL EXAMINATION: Soft, nontender, nondistended, positive bowel sounds EXTREMITIES: Range of motion intact SKIN: No rash NEUROLOGICAL EXAMINATION: Alert and oriented 3, no focal deficits PSYCHIATRIC EXAMINATION: Calm and cooperative LABORATORY DATA: Please see below. IMAGING: Chest x-ray with chronic left-sided changes secondary to malignancy, possible overlying infection. Doppler negative for DVT PROGNOSIS: Guarded ACTIVITY: As tolerated. DIET: Cardiac DISCHARGE PLAN: Follow with oncologist and PCP in 1-2 weeks DISPOSITION: Home. DISCHARGE INSTRUCTIONS: 1. As above. DISCHARGE CONDITION: Stable. TIME SPENT ON DISCHARGE: Greater than 34 minutes. Vital Signs/I&Os Vital Signs Date Time Temp Pulse Resp B/P (MAP) Pulse Ox O2 Delivery O2 Flow Rate FiO2 12/12/19 07:39 97.4 82 18 160/73 (102) 96 Room Air I&O- Last 24 Hours up to 6 AM 12/12/19 06:00 Intake Total 1500 ml Output Total 700 ml Balance 800 ml Laboratory Data Labs 24H Laboratory Tests 2 12/12/19 04:23: Neutrophils (%) (Auto) , Nucleated Red Blood Cells % (auto) 0.0, Neutrophils 66, Band Neutrophils 6, Lymphocytes (Manual) 13L, Eosinophils (Manual) 15H, Basophilic Stippling 1+, Anisocytosis 1+, Platelet Estimate MARKED DECREASE, Immature Platelet Fraction 3.9, Anion Gap 8, Glomerular Filtration Rate 42.1, Calcium Level 7.8L CBC/BMP Laboratory Tests 12/12/19 04:23 Microbiology Microbiology 12/10/19 Blood Culture - Preliminary, Resulted No growth after 24 hours . All specim... 12/10/19 Blood Culture - Preliminary, Resulted No growth after 24 hours . All specim... Discharge Medications Scheduled Aspirin (Aspir 81) 81 Mg Tablet.dr, 81 MG PO DAILY, (Reported) Budesonide/Formoterol (Symbicort 160-4.5 Mcg Inhaler) 6 Gm Hfa.aer.ad, 2 PUFF INH BID, (Reported) Levofloxacin (Levofloxacin) 500 Mg Tablet, 500 MG PO DAILY, (Reported) ENDS ON 12/15/19 Pantoprazole Sodium (Pantoprazole Sodium) 40 Mg Tablet.dr, 40 MG PO Q2D, (Reported) Scheduled PRN Albuterol Sulf (Albuterol Sulfate) 2.5 Mg/3 Ml Vial.neb, 1 VIAL INH Q4H PRN for wheezing, (Reported) Docusate Sodium (Docusate Sodium) 100 Mg Capsule, 100 MG PO DAILY PRN for CONSTIPATION, (Reported) Sennosides (Senna) 8.6 Mg Tablet, 8.6 MG PO BID PRN for BOWEL CARE/CONSTIPATION, (Reported) Allergies Coded Allergies: No Known Drug Allergies (Verified Allergy, Unknown, 05/17/19) JUAN ANTONIO FAITH MD December 12, 2019 10:10
--- NOTE | 2019-12-13 10:40 | REP ---
REASON FOR EXAM: Cough and fever. COMPARISON EXAM: Multiple, latest 05/17/2019, a portable exam. Preliminary report was given by Dr. Huynh at the time the examination was performed. There is a persistent patchy opacity in the left upper lobe, however, this chronic opacity has decreased in appearance when compared to the frontal view of the chest obtained as part of a rib series on 07/04/2018. Due to the difference in technical factors between today's examination the latest prior examination of 05/17/2019, I cannot say with certainty whether or not the opacity has changed. Lung rosas are otherwise clear. The heart is not enlarged and the pleural angles are sharp. There is no significant change in appearance of the osseous structures. IMPRESSION: Persistent left upper lobe opacity, as described above, of uncertain etiology. Consider CT examination of the chest so as it can be compared to the prior CT examination of the chest, which was performed on 07/17/2018. Electronically Signed by Meir Chen DO 12/13/2019 11:54 A
== END 2019-12-12 11:28 | disposition home or self-care (01) | DRG 809 ==
LOC: M PCU 20:15
PROVIDERS: ADMIT Family Medicine; ATTEND Internal Medicine
DX: D61.810 Antineoplastic chemotherapy induced pancytopenia (principal); N39.0 Urinary tract infection, site not specified; C83.30 Diffuse large B-cell lymphoma, unspecified site; C34.90 Malignant neoplasm of unspecified part of unspecified bronchus or lung; G62.9 Polyneuropathy, unspecified; K21.9 Gastro-esophageal reflux disease without esophagitis; D64.9 Anemia, unspecified; R53.1 Weakness; R60.0 Localized edema; Z79.82 Long term (current) use of aspirin; Z79.899 Other long term (current) drug therapy; T45.1X5A Adverse effect of antineoplastic and immunosuppressive drugs, initial encounter

== ENCOUNTER → 2020-01-07 | Outpatient (REF) | payer MEDICARE ==
[~2020-01-07] MED LIST changes: +DOCU100C16 PO; +LEVO500T3 PO
[2020-01-07 17:05] LABS: APPEARANCE, URINE CLOUDY (CLEAR); BACTERIA, URINE AUTO NEGATIVE (NEGATIVE); BILIRUBIN, URINE AUTO NEGATIVE (NEGATIVE); BLOOD, URINE BLOOD NEGATIVE (NEGATIVE); COLOR, URINE YELLOW (YELLOW); GLUCOSE, URINE (UA) AUTO NEGATIVE (NEGATIVE); KETONE, URINE AUTO NEGATIVE (NEGATIVE); LEUKOCYTE ESTERASE, URINE AUTO 3+ (NEGATIVE); NITRITE, URINE AUTO POSITIVE (NEGATIVE); PROTEIN, URINE AUTO 1+ mg/dL (NEGATIVE); RBC, URINE AUTO 17 /HPF (0-3); SPECIFIC GRAVITY URINE AUTO 1.019 (1.002-1.035); SQUAMOUS EPITHELIAL CELL UR AU 0 /HPF (0-6); TRANSITIONAL EPITHELIAL AUTO 2 /HPF; UROBILINOGEN, URINE AUTO 0.2 mg/dL (0.0-2.0); WBC, URINE AUTO TNTC /HPF (0-3)
== END ==
LOC: EEVIPCON 16:34 → M LAB REF 16:34
PROVIDERS: ATTEND Physician Assistant
DX: N39.0 Urinary tract infection, site not specified (principal)

== ENCOUNTER → 2020-10-09 | Outpatient (REF) | payer MEDICARE ==
[~2020-10-09] MED LIST changes: -ASPI81TA85 PO; +ASPI81TA86 PO; +LISI10TA22 PO; -LISI10TA4 PO; +PANT40TA29 PO; -PANT40TA3 PO
[2020-10-09 16:40] LABS: APPEARANCE, URINE CLOUDY (CLEAR); BACTERIA, URINE AUTO 1+ (NEGATIVE); BILIRUBIN, URINE AUTO NEGATIVE (NEGATIVE); BLOOD, URINE BLOOD NEGATIVE (NEGATIVE); COLOR, URINE YELLOW (YELLOW); GLUCOSE, URINE (UA) AUTO NEGATIVE (NEGATIVE); KETONE, URINE AUTO NEGATIVE (NEGATIVE); LEUKOCYTE ESTERASE, URINE AUTO 3+ (NEGATIVE); MUCUS, URINE SMALL (NEGATIVE); NITRITE, URINE AUTO NEGATIVE (NEGATIVE); PROTEIN, URINE AUTO NEGATIVE (NEGATIVE); RBC, URINE AUTO 8 /HPF (0-3); SPECIFIC GRAVITY URINE AUTO 1.017 (1.002-1.035); SQUAMOUS EPITHELIAL CELL UR AU 0 /HPF (0-6); UROBILINOGEN, URINE AUTO 0.2 mg/dL (0.0-2.0); WBC, URINE AUTO TNTC /HPF (0-3)
== END ==
LOC: M LAB REF 16:19
PROVIDERS: ATTEND Physician Assistant Medical
DX: N39.0 Urinary tract infection, site not specified (principal)

== ENCOUNTER → 2020-12-28 | Outpatient (REF) | payer MEDICARE | LOC: M LAB REF 17:22 | PROVIDERS: ATTEND Internal Medicine | DX: G62.0 Drug-induced polyneuropathy (principal) ==

== ENCOUNTER → 2021-02-23 | Outpatient (REF) | payer MEDICARE ==
[2021-02-23 17:49] LABS: APPEARANCE, URINE CLOUDY (CLEAR); BACTERIA, URINE AUTO NEGATIVE (NEGATIVE); BILIRUBIN, URINE AUTO NEGATIVE (NEGATIVE); BLOOD, URINE BLOOD NEGATIVE (NEGATIVE); COLOR, URINE YELLOW (YELLOW); GLUCOSE, URINE (UA) AUTO NEGATIVE (NEGATIVE); KETONE, URINE AUTO NEGATIVE (NEGATIVE); LEUKOCYTE ESTERASE, URINE AUTO 3+ (NEGATIVE); NITRITE, URINE AUTO POSITIVE (NEGATIVE); PROTEIN, URINE AUTO 1+ mg/dL (NEGATIVE); RBC, URINE AUTO 42 /HPF (0-3); SPECIFIC GRAVITY URINE AUTO 1.012 (1.002-1.035); SQUAMOUS EPITHELIAL CELL UR AU 0 /HPF (0-6); UROBILINOGEN, URINE AUTO 0.2 mg/dL (0.0-2.0); WBC, URINE AUTO TNTC /HPF (0-3)
== END ==
LOC: M LAB REF 16:36
PROVIDERS: ATTEND Physician Assistant Medical
DX: N39.0 Urinary tract infection, site not specified (principal)

== ENCOUNTER → 2021-04-05 | Outpatient (REF) | payer MEDICARE | LOC: M LAB REF 16:20 | PROVIDERS: ATTEND Registered Nurse | DX: R35.0 Frequency of micturition (principal) ==

== ENCOUNTER → 2021-05-10 | Outpatient (REF) | payer MEDICARE | LOC: M LAB REF 16:19 | PROVIDERS: ATTEND Internal Medicine | DX: R35.0 Frequency of micturition (principal) ==